=== PATIENT | female | born 1985 | race Caucasian/White ===

== ENCOUNTER 2017-10-26 01:45 | Inpatient (IN) | payer OTHER ==
[2017-10-26 02:35] LABS: Amnisure Test RUPTURE DETECTED (No Rupture)
[2017-10-26 02:36] LABS: Amnisure Internal Control QC ACCEPTABLE (ACCEPTABLE)
[2017-10-26 02:57] VITALS: BMI 31.6
--- NOTE | 2017-10-26 03:17 | PDOC.LDHP ---
Labor and Delivery H&P Chief complaint: contractions, loss of fluid, scheduled section HPI: prior cs x 1 for repeat at term with srom at 2200 Current gestational age (weeks): 37 Dating criteria: last menstrual period, first trimester ultrasound Grav: 2 Para: 1 Current complications: none Abnormal US findings: No Current medications: pre- vitamins Previous surgical history: low tranverse CS Allergies/Adverse Reactions: Allergies Allergy/AdvReac Type Severity Reaction Status Date / Time No Known Allergies Allergy Verified 05/03/16 09:00 Social history: none - Physical Exam Vital signs reviewed and normal: yes General: NAD, resting, breathing through contractions Heart: RRR Lungs: CTAB Abdomen: gravid Extremeties: no edema FHT: category 1 - OB Labs Blood type: O RH: positive Antibody Screen: negative HIV: negative RPR: negative HEPSAg: negative 1 hour GCT: negative GBS: negative - Assessment L&D Assessment: scheduled repeat section - Plan Plan: admit to L&D, to OR for section
[2017-10-26] MEDS ORDERED: Bicitra 30 ML UDCUP ONE (03:23)
[2017-10-26] MEDS ORDERED: CEFAZOLIN/Water 2 GM/20 ML SYRINGE ONE (03:24)
[2017-10-26] MEDS ORDERED: Bicitra 30 ML UDCUP PO SCH (03:31)
[2017-10-26] MEDS ORDERED: Ondansetron HCl/PF 4 MG/2 ML Vial IVP PRN ×4 (03:31→08:35)
[2017-10-26] MEDS ORDERED: Lactated Ringer's 1,000 ML IV SCH ×3 (03:31→08:35)
[2017-10-26] MEDS ORDERED: Promethazine HCl 25 MG/ML VIAL IM PRN ×2 (03:31→04:33)
[2017-10-26] MEDS ORDERED: CEFAZOLIN/Water 2 GM/20 ML SYRINGE SLOW IVP SCH (03:31)
[2017-10-26] MEDS ORDERED: Morphine PF 1 MG/ML SYR ONE (03:50)
[2017-10-26] MEDS ORDERED: Oxytocin 10 UNITS/ML VIAL ONE (03:50)
[2017-10-26] MEDS ORDERED: ePHEDrine/0.9% NaCl/PF SYRINGE 50 mg/10 ml ONE (03:50)
[2017-10-26] MEDS ORDERED: Bupivacaine 0.75% W/DEXTROSE 8.25% 2 ML AMP ONE (03:50)
[2017-10-26] MEDS ORDERED: Lidocaine 1% PF 5 ML VIAL ONE (03:52)
[2017-10-26 04:00] LABS: Hemoglobin 13.4 g/dL (12.0-16.0); Mean Corpuscular HGB CONC 36.1 g/dL (32.0-36.0); Mean Platelet Volume 9.7 fL (7.4-10.4); Platelet Count 138 thou/uL (130-400); RBC Distribution Width 12.3 % (11.5-14.5); Red Blood Cell (RBC) Count 4.45 mill/uL (4.20-5.40); White Blood Cell (WBC) Count 8.1 thou/uL (4.8-10.8)
[2017-10-26 04:15] LABS: HBSAg Index 0.28 S/CO (0-0.99); Hep B Surf Ag Non-Reactive S/CO (NonReactive)
[2017-10-26] MEDS ORDERED: Naloxone HCl 0.4 mg/ml Vial IVP PRN ×2 (04:33)
[2017-10-26] MEDS ORDERED: diphenhydrAMINE 50 MG/ML VIAL IVP PRN (04:33)
[2017-10-26] MEDS ORDERED: Promethazine HCl 25 MG SUPP PR PRN (04:33)
[2017-10-26] MEDS ORDERED: HYDROmorphone 2 MG/ML VIAL SLOW IVP PRN (04:33)
[2017-10-26] MEDS ORDERED: Eucerin (Mineral Oil/Petrolatum,White) 30 gm Jar TOP PRN (04:33)
[2017-10-26] MEDS ORDERED: Naloxone HCl 0.4 mg/ml Vial IV PRN (04:33)
[2017-10-26] MEDS ORDERED: Meperidine HCl/PF 25 MG/ML VIAL SLOW IVP PRN (04:33)
[2017-10-26] MEDS ORDERED: Ketorolac Tromethamine 30 MG/ML VIAL IVP PRN (04:33)
[2017-10-26] MEDS ORDERED: Ketorolac Tromethamine 30 MG/ML VIAL IVP SCH (04:45)
[2017-10-26] MEDS ORDERED: Communication Order-Pharmacy FS SCH (04:45)
[2017-10-26 04:50] LABS: Syphilis Antibody Nonreactive (Nonreactive); Syphilis Antibody Index 0.04 S/CO (<1.00 Non-Reactive)
--- NOTE | 2017-10-26 05:26 | OP ---
DATE OF PROCEDURE: 10/26/2017 PREOPERATIVE DIAGNOSIS: A 37 weeks with spontaneous rupture of membranes, prior section for repeat. POSTOPERATIVE DIAGNOSIS: A 37 weeks with spontaneous rupture of membranes, prior section fo r repeat. PROCEDURE: Repeat low transverse section without extension. SURGEON: Jhoan Khalil M.D. BOOK SALESMAN: Michelle Thomson M.D. ANESTHESIOLOGIST: Andrei Bowman CRNA/Jorge Gregory M.D. ESTIMATED BLOOD LOSS: 700 mL DRAINS: Panda to gravity. MEDICATIONS: Two grams of Ancef preincision. DVT PROPHYLAXIS: SCDs. OPERATIVE FINDINGS: 1. Vigorous female , cephalic presentation, clear fluid, 8 and 8 Apgars, 8 pounds 11 ounces, n ewborn nursery. 2. Normal appearing uterus, tubes, and ovaries bilaterally. 3. Hemostasis, clear urine, and counts correct at the end of the procedure. DISPOSITION: To the recovery room in good condition. DESCRIPTION OF OPERATIVE PROCEDURE: After obtaining proper informed consent, patient was taken to e operating room, where SAB was achieved to the appropriate level for section. She was prep ped and draped in the usual manner. Previous Pfannenstiel incision incised sharply, carried down the fascia which was incised sharply and extended superiorly and laterally with curved Browne scissors. R ectus dissected off sharply superiorly and inferiorly, divided in midline, peritoneum entered bluntly , taking care to avoid trauma to the underlying viscera. Emre O retractor placed inside. Vesicout erine peritoneal fold identified and hysterotomy incision made at the level that the vesicouterine pe ritoneal fold. Clear fluid noted. excision was extended superiorly and laterally with finger fracti onization. 's head elevated to hysterotomy and rest of the delivered. Cord clamped and cut and handed off to team in attendance. Usual cord blood samples obtained. Placenta del ivered manually. Uterus was left in situ. Hysterotomy was noted without extension, closed using a r unning locking #1 Monocryl suture x1 layer. Good hemostasis noted. Gutters irrigated out bilaterall y. Reinspection of hysterotomy revealed to be dry. Emre O retractor was removed. Rectus inspecte d and noted to be dry. Fascia reapproximated using running continuous 0 PDS suture x2. Subcutaneous tissue irrigated and rendered hemostatic with Bovie cautery, reapproximated using a 2-0 plain gut. Skin reapproximated using 4-0 Monocryl and Dermabond. The patient taken to recovery room in good con dition.
[2017-10-26] MEDS ORDERED: Ketorolac Tromethamine 30 MG/ML VIAL ONE (06:43)
[2017-10-26] MEDS ORDERED: LR / Pitocin 40 units/1000 ml 1,000 ML ONE (07:12)
[2017-10-26] MEDS ORDERED: Lanolin Ointment 7 GM TUBE TOP PRN (08:35)
[2017-10-26] MEDS ORDERED: Simethicone Chewable 80 MG TAB PO PRN (08:35)
[2017-10-26] MEDS ORDERED: Adacel (T-DAP) 0.5 ML VIAL IM ONE (08:35)
[2017-10-26] MEDS ORDERED: Zolpidem Tartrate 5 MG TAB PO PRN (08:35)
[2017-10-26] MEDS ORDERED: Ibuprofen 800 MG TAB PO SCH (08:35)
[2017-10-26] MEDS ORDERED: Bisacodyl 10 MG SUPP PR PRN (08:35)
[2017-10-26] MEDS ORDERED: LR w/ Pitocin 40 units/1000 ML BAG IV SCH (08:35)
[2017-10-26] MEDS ORDERED: diphenhydrAMINE 25 MG CAP PO PRN (08:35)
[2017-10-26] MEDS ORDERED: LR / Pitocin 40 units/1000 ml 1,000 ML IV SCH (09:15)
[2017-10-26] MEDS: Docusate Calcium (SURFAK) 240 MG CAP PO SCH ×2 (14:08→21:12)
[2017-10-26] MEDS ORDERED: HYDROcodone/Acetaminophen 5/325 mg Tablet PO PRN ×2 (16:45)
[2017-10-26] MEDS ORDERED: Meperidine HCl/PF 25 MG/ML VIAL IM PRN (16:45)
[2017-10-26] MEDS: Ibuprofen 800 MG TAB PO SCH (21:12)
[2017-10-27] MEDS: Ibuprofen 800 MG TAB PO SCH ×3 (05:18→21:07)
[2017-10-27 05:54] LABS: Mean Corpuscular HGB CONC 34.9 g/dL (32.0-36.0); Mean Corpuscular Hemoglobin 29.4 pg (27.0-31.0); Mean Corpuscular Volume 84.3 fl (81.0-99.0); Mean Platelet Volume 9.4 fL (7.4-10.4); Platelet Count 113 thou/uL (130-400); RBC Distribution Width 12.2 % (11.5-14.5); Red Blood Cell (RBC) Count 3.73 mill/uL (4.20-5.40); White Blood Cell (WBC) Count 7.4 thou/uL (4.8-10.8)
[2017-10-27] MEDS: Docusate Calcium (SURFAK) 240 MG CAP PO SCH ×2 (09:36→21:07)
--- NOTE | 2017-10-27 09:37 | PDOC.PP ---
Post Progress Note Post Day #: 1 PO intake tolerated: yes Flatus: yes Ambulation: yes Vital Signs (12 hours) Temp Pulse Resp BP BP 10/27/17 08:10 98.1 F 88 20 130/69 10/27/17 05:15 97.9 F 71 18 10/27/17 04:00 97.9 F 71 18 124/69 10/27/17 00:00 98.1 F 69 18 121/78 Weight Weight 214 lb - Physical Examination General: NAD Cardiovascular: no m/r/g, RRR Respiratory: clear to auscultation bilaterally Abdominal: + bowel sounds, lochia, no distention, appropriately TTP Extremities: negative homans (B) Skin: CS incision dry & intact, no rash Neurological: no gross focal deficits Psychiatric: A&Ox3, normal affect Result Diagrams: 10/27/17 05:15 Additional Labs: Post Labs Blood Type O POSITIVE 10/26/17 03:10 Hep Bs Antigen Non-Reactive S/CO (NonReactive) 10/26/17 03:10 (1) delivery delivered Code(s): O82 - ENCOUNTER FOR DELIVERY WITHOUT INDICATION Status: Acute - Assessment/Plan [facility] possible 10/28 or 11 dc
[2017-10-28] MEDS: Ibuprofen 800 MG TAB PO SCH (05:58)
--- NOTE | 2017-10-28 08:28 | PDOC.PP ---
Post Progress Note Post Day #: 2 PO intake tolerated: yes Flatus: yes Ambulation: yes Vital Signs (12 hours) Temp Pulse Resp BP 10/28/17 08:00 98.1 F 65 18 10/28/17 00:00 98.1 F 65 18 145/85 H Weight Weight 214 lb - Physical Examination General: NAD Cardiovascular: no m/r/g, RRR Respiratory: clear to auscultation bilaterally, non-labored breathing Abdominal: + bowel sounds, lochia, no distention, appropriately TTP Extremities: negative homans (B) Neurological: no gross focal deficits Psychiatric: A&Ox3, normal affect Result Diagrams: 10/27/17 05:15 Additional Labs: Post Labs Blood Type O POSITIVE 10/26/17 03:10 Hep Bs Antigen Non-Reactive S/CO (NonReactive) 10/26/17 03:10 (1) delivery delivered Code(s): O82 - ENCOUNTER FOR DELIVERY WITHOUT INDICATION Status: Acute - Assessment/Plan doing well. dc home
[2017-10-28 08:41] VITALS: BP 150/89; TEMP 98.6
[2017-10-28] MEDS: Docusate Calcium (SURFAK) 240 MG CAP PO SCH (09:30)
== END 2017-10-28 10:10 | disposition home or self-care (01) | DRG 766 ==
LOC: L&D/OP 01:45 → L&D 02:47 → 3SW 07:51
PROVIDERS: ADMIT Obstetrics & Gynecology; ATTEND Obstetrics & Gynecology
PROC: 10D00Z1 Extraction of Products of Conception, Low, Open Approach (ICD-10-PCS; principal; 2017-10-26)
DX: O34.211 Maternal care for low transverse scar from previous cesarean delivery (principal); Z3A.37 37 weeks gestation of pregnancy; Z37.0 Single live birth
CPT/HCPCS: 36415; 51702; 84112; 85027; 86780; 86850; 86900; 86901; 87340; 99285; J1885; J2001; J2274; J2590; J3490